=== PATIENT | male | born 1980 | race American Indian/Alaskan Native ===

== ENCOUNTER 2021-01-28 19:58 | Emergency (ER) | payer SELFPAY ==
[2021-01-28 21:16] LABS: Basophils % (Auto) 0.4 % (0.0-1.8); Eosinophils # (Auto) 0.1 K/mm3 (0.0-0.4); Eosinophils % (Auto) 1.6 % (0.0-4.3); Hematocrit 44.1 % (35.5-45.6); Hemoglobin 15.2 gm/dl (11.8-15.2); Lymphocytes % (Auto) 24.5 % (13.4-35.0); Mean Corpuscular HGB Conc 35 % (32-34); Mean Corpuscular Volume 94 fl (84-94); Monocytes # (Auto) 0.8 K/mm3 (0.0-0.8); Monocytes % (Auto) 9.5 % (0.0-7.3); Platelet Count 138 K/mm3 (140-440); Red Blood Count 4.72 M/mm3 (3.65-5.03); Red Cell Distribution Width 13.5 % (13.2-15.2)
[2021-01-28 21:45] LABS: Alanine Aminotransferase 11 units/L (7-56); Albumin 3.9 g/dL (3.9-5); BUN/Creatinine Ratio 15; Blood Urea Nitrogen 12 mg/dL (9-20); Hemolysis Index 38
--- NOTE | 2021-01-29 | Emergency Department Report ---
ED General Adult HPI - General Chief complaint: Dizziness Stated complaint: DIZZINESS/NAUSEA/EMESIS/DIARRHEA Time Seen by Provider: 01/28/21 23:27 Source: patient Mode of arrival: Ambulatory Limitations: No Limitations - History of Present Illness Initial comments: 40-year-old male patient presents to emergency department with complaints of dizziness, nausea, vomiting, and diarrhea starting today. Patient states the dizziness preceded his GI symptoms. Describes the dizziness as "the room is spinning." He has had approximately 6 episodes of nonbloody emesis and 6 episodes of diarrhea since the dizziness began today. No preceding head trauma. No recent drug or alcohol use. Patient was experiencing mild upper respiratory symptoms a few weeks ago, which resolved spontaneously. No known sick contacts. Denies headache, blurred vision, neck pain, chest pain, shortness of breath, rectal bleeding, abdominal pain, urinary symptoms, syncope, seizure, numbness, paresthesias, hearing loss. Denies other complaints at this time. - Related Data Previous Rx's Medication Instructions Recorded Last Taken Type Meclizine [Antivert] 25 mg PO TID PRN 7 Days tablet 01/29/21 Unknown Rx Ondansetron [Zofran Odt] 4 mg PO Q6H #20 tab.rapdis 01/29/21 Unknown Rx Prednisone [predniSONE 10 mg 10 mg PO .TAPER #1 tab.ds.pk 01/29/21 Unknown Rx (6-Day Pack, 21 Tabs)] Allergies Allergy/AdvReac Type Severity Reaction Status Date / Time No Known Allergies Allergy Unverified 01/28/21 20:52 ED Review of Systems ROS: Stated complaint: DIZZINESS/NAUSEA/EMESIS/DIARRHEA Other details as noted in HPI Other: GENERAL: Negative for fever, chills, weight change, anorexia, fatigue. ENT: Negative for ear pain, difficulty hearing, sore throat, nasal congestion, epistaxis. CARDIOVASCULAR: Negative for chest pain, palpitations, lower extremity swelling. PULMONARY: Negative for cough, dyspnea, wheezing, orthopnea, cyanosis. GASTROINTESTINAL: Positive for nausea, vomiting, diarrhea. MUSCULOSKELETAL: Negative for joint pain, joint swelling, myalgias, back pain, neck pain. NEUROLOGICAL: Positive for dizziness. INTEGUMENTARY: Negative for erythema, rash, diaphoresis, laceration, ecchymosis. HEMATOLOGICAL: Negative for hemoptysis, hematemesis, hematochezia, hematuria. PSYCHIATRIC: Negative for hallucinations, suicidal ideation, homicidal ideation, anxiety, depression. ED Past Medical Hx - Past Medical History Previous Medical History?: No - Surgical History Past Surgical History?: No - Social History Smoking Status: Never Smoker Substance Use Type: None - Medications Home Medications: Home Medications Medication Instructions Recorded Confirmed Last Taken Type Meclizine [Antivert] 25 mg PO TID PRN 7 Days tablet 01/29/21 Unknown Rx Ondansetron [Zofran Odt] 4 mg PO Q6H #20 tab.rapdis 01/29/21 Unknown Rx Prednisone [predniSONE 10 mg 10 mg PO .TAPER #1 tab.ds.pk 01/29/21 Unknown Rx (6-Day Pack, 21 Tabs)] ED Physical Exam - General Limitations: No Limitations - Other Other exam information: General: Awake and alert. No acute distress. Head: Atraumatic, normocephalic. Eyes: EOMI. Pupils are equal and round, reactive to light, no nystagmus. Normal sclera and conjunctiva. ENT: Oral mucosa is moist. Normal pharyngeal exam. Neck: Supple. No lymphadenopathy. Pulmonary: No respiratory distress. Clear to auscultation bilaterally. Cardiac: Regular rate and rhythm. Pulses are palpable and equal bilaterally. No lower extremity cyanosis or edema. Skin: Warm and dry. No rashes. Abdomen: Soft, non-tender, non-protuberant. No guarding, rigidity, or rebound. Bowel sounds are normal. No organomegaly or masses noted. Back: Normal alignment. No CVA tenderness. Extremities: Symmetrical. Full range of motion intact. Neurological: Alert and oriented, appropriately interactive, no focal deficits. Strength and sensation intact throughout. Cerebellar hzvabi-it-nxbe and jler-ut-wfxz exam intact. Ambulatory without assistance. Dizziness is r eproducible with positional changes. Psych: Cooperative. Appropriate mood and affect. Speech is evenly metered. Thoughts are logically construed. ED Course Vital Signs 01/28/21 01/29/21 20:54 02:38 Temperature 98.0 F 97.7 F Pulse Rate 70 75 Respiratory 18 16 Rate Blood Pressure 135/76 Blood Pressure 110/74 [Right] O2 Sat by Pulse 98 99 Oximetry ED Medical Decision Making - Lab Data Result diagrams: 01/28/21 21:06 01/28/21 21:06 - EKG Data 01/29/21 00:05 EKG shows normal sinus rhythm with a ventricular rate of 69 bpm. Normal axis. Normal UT interval. Normal QT interval. Good R wave progression. No ST segment changes. Over read by attending emergency physician, who agrees with this interpretation. - Medical Decision Making Differential diagnosis including but not limited to: posterior circulation stroke, central vertigo, peripheral vertigo, Mnire's disease, vestibular neuritis, labyrinthitis, dehydration, electrode abnormality, hypoglycemia, cardiac arrhythmia On reevaluation, patient remains stable. Repeat neurological exam is nonfocal. EKG without evidence of cardiac arrhythmia. Labs are unremarkable. Patient appears to be in no acute distress. He is ambulatory without assistance. No further vomiting in the emergency department. History and exam findings are not suggestive of acute cerebrovascular event. Presentation suggestive of peripheral vertigo. No clinical indication for further diagnostic work-up on an emergent basis at this time. Imaging may be considered on an outpatient basis if symptoms persist. Patient will be discharged home with appropriate s ymptomatic treatment and referred to primary care provider for close outpatient follow-up. Patient expressed understanding and is agreeable to plan of care. Strict return precautions provided. Repeat exam is unremarkable and benign. History, exam, diagnostic testing, and current condition do not suggest worrisome pathology to warrant further testing, continued ED treatment, admission, or surgical evaluation at this point. Given the low probability of a significant medical illness, it would be more likely to result in harm than benefit to perform further testing at this stage. Discussed findings, presumptive diagnosis, need for follow-up and specific signs/symptoms that should prompt immediate return to the emergency department. Instructions were explained in detail to the patient in addition to giving written discharge information. Patient expressed understanding and was given the opportunity to ask questions, all of which were satisfactorily answered prior to discharge home. Critical care attestation.: If time is entered above; I have spent that time in minutes in the direct care of this critically ill patient, excluding procedure time. ED Disposition Clinical Impression: Dizziness, nonspecific Disposition: DC-01 TO HOME OR SELFCARE Is pt being admited?: No Does the pt Need Aspirin: No Condition: Stable Instructions: Dizziness, Hjpk-ck-Wait Additional Instructions: Take Meclizine as directed. Take Medrol Dosepak as directed. Take Zofran as needed for nausea/vomiting. Rest. Drink plenty fluids. Gradually advance physical activity slowly as tolerated. Follow-up with your primary care provider this week. Call today to schedule an appointment. Return to the emergency department immediately for new or worsening symptoms. Specifically, return to the emergency department immediately for headache, vision changes, numbness, seizure, loss of consciousness, dehydration, fever, neck stiffness, or any other concerns. Prescriptions: Meclizine [Antivert] 25 mg PO TID PRN 7 Days tablet PRN Reason: Vertigo Prednisone [predniSONE 10 mg (6-Day Pack, 21 Tabs)] 10 mg PO .TAPER #1 tab.ds.pk Ondansetron [Zofran Odt] 4 mg PO Q6H #20 tab.rapdis Referrals: THAIS KEARNEY MD [Staff Physician] - 3-5 Days Forms: Work/School Release Form(ED) Time of Disposition: 02:44
[2021-01-29] MEDS ORDERED: methylPREDNISolone Sod Succinate 125 MG/2 ML INJ IV ONE (00:02)
[2021-01-29] MEDS ORDERED: MECLIZINE 25 MG TAB PO ONE (00:02)
[2021-01-29] MEDS ORDERED: ONDANSETRON 4 MG/2 ML INJ IV ONE (00:02)
[2021-01-29] MEDS ORDERED: SODIUM CHLORIDE 0.9% 500 ML 500 ML IV ONE (00:04)
[2021-01-29 02:39] VITALS: BP 110/74
--- NOTE | 2021-01-29 12:08 | Electrocardiograph Report ---
[facility] Test Date: 2021-01-28 Test Time: 20:58:05 Pat Name: ALEXANDRE ALLEN Department: Room: Gender: M [employer]: EP : 1980 Requested By: LORI BARNES Order Number: [id number] Reading MD: Tasha Cancino Measurements Intervals [place] Rate: 69 P: 67 CO: 158 QRS: 74 QRSD: 72 T: 60 QT: 374 QTc: 402 Interpretive Statements Sinus rhythm ST elev, probable normal early repol pattern No previous ECG available for comparison Electronically Signed On 01-29-2021 12:08:38 EDT by Tasha Cancino
== END 2021-01-29 03:00 | disposition home or self-care (01) ==
LOC: ED 19:58
DX: R42 Dizziness and giddiness (principal); Z79.899 Other long term (current) drug therapy
CPT/HCPCS: 36415; 80053; 84484; 85025; 93005; 96361; 96374; 96375; 99283; J2405; J2930; J7040

== ENCOUNTER 2022-03-05 16:48 | Emergency (ER) | payer SELFPAY ==
[2022-03-05 18:39] VITALS: BP 120/68
--- NOTE | 2022-03-06 11:26 | Electrocardiograph Report ---
[facility] Test Date: 2022-03-05 Test Time: 18:35:08 Pat Name: ALEXANDRE ALLEN Department: Room: Gender: M In Classroom Tutor: ALBA : 1980 Requested By: ED DOC Order Number: [id number] Reading MD: Cristiano Hidalgo Measurements Intervals [place] Rate: 76 P: 73 SD: 153 QRS: 47 QRSD: 68 T: 53 QT: 357 QTc: 402 Interpretive Statements Sinus rhythm Compared to ECG 01/28/2021 20:58:05 ST (T wave) deviation no longer present Electronically Signed On 03-06-2022 11:26:21 EDT by Cristiano Hidalgo
== END 2022-03-07 06:43 | disposition left against medical advice (07) ==
LOC: ED 16:48
DX: R07.9 Chest pain, unspecified (principal); Z53.21 Procedure and treatment not carried out due to patient leaving prior to being seen by health care provider
CPT/HCPCS: 93005